=== PATIENT | female | born 1935 | race Caucasian/White ===

== ENCOUNTER 2023-07-03 11:04 | Inpatient (IN) | payer MEDICARE ==
[2023-07-03] MEDS ORDERED: traMADol HCl 50 MG TAB PO PRN (15:11)
[2023-07-03] MEDS ORDERED: CYCLOBENZAPRINE HCL 7.5 MG PO PRN (15:11)
[2023-07-03] MEDS ORDERED: Benzocaine/Menthol 1 LOZ LOZ PO PRN (15:20)
[2023-07-03] MEDS ORDERED: Artificial Tear Sol 15 ML BOT EA EYE PRN (15:20)
[2023-07-03] MEDS ORDERED: Acetaminophen 325 MG TAB PO PRN (15:20)
[2023-07-03] MEDS ORDERED: Bisacodyl 10 MG SUPP PR PRN (15:20)
[2023-07-03] MEDS ORDERED: Benzonatate 100 MG CAP PO PRN (15:20)
[2023-07-03] MEDS ORDERED: Sodium Chloride 0.65% Nasal 44 ML BOT EA NARE PRN (15:20)
[2023-07-03] MEDS ORDERED: Guaifenesin DM 100-10/5 ML UDCUP PO PRN (15:20)
[2023-07-03] MEDS ORDERED: cloNIDine 0.1 MG TAB PO PRN (15:20)
[2023-07-03] MEDS ORDERED: Calcium Carbonate 500 MG ChewTAB PO PRN ×2 (15:20)
[2023-07-03] MEDS ORDERED: Acetaminophen 650 MG Suppository PR PRN (15:20)
[2023-07-03] MEDS ORDERED: Cyclobenzaprine 10 MG TAB PO PRN (15:26)
[2023-07-03] MEDS: Ferrous Sulfate 325 MG TAB PO SCH (17:44)
[2023-07-03] MEDS: Potassium Chloride 10 MEQ TAB PO SCH (17:44)
[2023-07-03] MEDS: Acetaminophen 500 MG TAB PO SCH (21:52)
[2023-07-03] MEDS: Gabapentin 300 MG CAP PO SCH (21:52)
[2023-07-03] MEDS: Saccharomyces boulardii 250 MG CAP PO SCH (21:52)
[2023-07-03] MEDS: Amitriptyline HCl 25 MG TAB PO SCH (21:53)
[2023-07-04 05:17] LABS: %Lymphocytes 25.1 % (21.0-51.0); %Monocytes 8.6 % (0.0-10.0); %Neutrophils 57.6 % (42.0-75.0); Hematocrit 41.2 % (36.0-47.0); Hemoglobin 13.3 g/dL (12.0-16.0); Mean Corpuscular HGB CONC 32.3 g/dL (32.0-36.0); Mean Corpuscular Hemoglobin 29.4 pg (27.0-31.0); Mean Corpuscular Volume 91.2 fl (78.0-98.0); Mean Platelet Volume 7.2 fL (7.4-10.4); Platelet Count 269 10x3/uL (130-400); RBC Distribution Width 12.9 % (11.5-14.5); Red Blood Cell (RBC) Count 4.52 mill/uL (4.20-5.40); White Blood Cell (WBC) Count 7.3 10x3/uL (4.8-10.8)
[2023-07-04 05:18] LABS: #Basophils 0.1 thou/uL (0.0-0.2); #Eosinphils 0.6 thou/uL (0.0-0.7); #Lymphocytes 1.8 thou/uL (1.20-3.40); #Monocytes 0.6 thou/uL (0.11-0.59); #Neutrophils 4.2 thou/uL (1.40-6.50); %Basophils 1.1 % (0.0-1.0); %Eosinophils 7.6 % (0.0-10.0)
[2023-07-04 05:35] LABS: Sodium 139 mmol/L (136-145)
[2023-07-04 05:36] LABS: ALT (SGPT) 14 U/L (8-55); AST (SGOT) 20 U/L (5-34); Alkaline Phosphatase 69 U/L (40-110); BUN (Urea Nitrogen) 21 mg/dL (9.8-20.1); Bilirubin, Total 0.7 mg/dL (0.2-1.2); Calc. Creatinine Clearance 50 mL/min (70-130); Calcium 9.4 mg/dL (7.6-10.4); Carbon Dioxide 24 mmol/L (23-31); Chloride 107 mmol/L (98-107); Estimated GFR 84; Globulin 3.6 g/dL (2.4-3.5); Glucose 80 mg/dL (83-110); Protein, Total 6.6 g/dL (5.8-8.1)
[2023-07-04] MEDS: Thyroid 30 MG TAB PO SCH (06:10)
[2023-07-04 08:43] LABS: Anion Gap 12 mmol/L (10-20)
[2023-07-04] MEDS: Potassium Chloride 10 MEQ TAB PO SCH ×2 (08:43→16:16)
[2023-07-04] MEDS: Saccharomyces boulardii 250 MG CAP PO SCH ×2 (08:43→20:19)
[2023-07-04] MEDS: Cholecalciferol 1,000 UNITS (25 MCG) TAB PO SCH (08:43)
[2023-07-04] MEDS: Furosemide 20 MG TAB PO SCH (08:43)
[2023-07-04] MEDS: Famotidine 20 MG TAB PO SCH (08:43)
[2023-07-04] MEDS: Acetaminophen 500 MG TAB PO SCH ×2 (08:44→20:19)
[2023-07-04] MEDS: Ferrous Sulfate 325 MG TAB PO SCH ×2 (08:44→16:16)
[2023-07-04] MEDS: Aspirin 81 mg Enteric Coated Tablet PO SCH (08:44)
[2023-07-04] MEDS: Senokot S 8.6-50 MG TAB PO PRN (16:16)
[2023-07-04] MEDS: Gabapentin 300 MG CAP PO SCH (20:18)
[2023-07-04] MEDS: Amitriptyline HCl 25 MG TAB PO SCH (20:19)
[2023-07-05] MEDS: Thyroid 30 MG TAB PO SCH (06:03)
[2023-07-05] MEDS: Cholecalciferol 1,000 UNITS (25 MCG) TAB PO SCH (08:05)
[2023-07-05] MEDS: Furosemide 20 MG TAB PO SCH (08:06)
[2023-07-05] MEDS: Famotidine 20 MG TAB PO SCH (08:06)
[2023-07-05] MEDS: Senokot S 8.6-50 MG TAB PO PRN (08:06)
[2023-07-05] MEDS: Saccharomyces boulardii 250 MG CAP PO SCH ×2 (08:06→20:20)
[2023-07-05] MEDS: Acetaminophen 500 MG TAB PO SCH ×2 (08:06→20:20)
[2023-07-05] MEDS: Potassium Chloride 10 MEQ TAB PO SCH ×2 (08:06→16:45)
[2023-07-05] MEDS: Aspirin 81 mg Enteric Coated Tablet PO SCH (08:06)
[2023-07-05] MEDS: Ferrous Sulfate 325 MG TAB PO SCH ×2 (08:06→16:45)
[2023-07-05] MEDS: Amitriptyline HCl 25 MG TAB PO SCH (20:20)
[2023-07-05] MEDS: Gabapentin 300 MG CAP PO SCH (20:20)
[2023-07-06] MEDS: Thyroid 30 MG TAB PO SCH (05:34)
[2023-07-06 06:07] LABS: #Basophils 0.1 thou/uL (0.0-0.2); #Eosinphils 0.6 thou/uL (0.0-0.7); #Lymphocytes 1.8 thou/uL (1.20-3.40); #Monocytes 0.6 thou/uL (0.11-0.59); #Neutrophils 4.5 thou/uL (1.40-6.50); %Basophils 0.9 % (0.0-1.0); %Eosinophils 7.9 % (0.0-10.0); %Lymphocytes 23.7 % (21.0-51.0); %Monocytes 7.8 % (0.0-10.0); %Neutrophils 59.8 % (42.0-75.0); Hematocrit 43.1 % (36.0-47.0); Hemoglobin 13.4 g/dL (12.0-16.0); Mean Corpuscular HGB CONC 31.1 g/dL (32.0-36.0); Mean Corpuscular Hemoglobin 28.7 pg (27.0-31.0); Mean Corpuscular Volume 92.4 fl (78.0-98.0); Mean Platelet Volume 7.1 fL (7.4-10.4); Platelet Count 282 10x3/uL (130-400); RBC Distribution Width 13.3 % (11.5-14.5); Red Blood Cell (RBC) Count 4.67 mill/uL (4.20-5.40); White Blood Cell (WBC) Count 7.5 10x3/uL (4.8-10.8)
[2023-07-06 06:24] LABS: Anion Gap 12 mmol/L (10-20); BUN (Urea Nitrogen) 19 mg/dL (9.8-20.1); Calc. Creatinine Clearance 48 mL/min (70-130); Calcium 9.4 mg/dL (7.6-10.4); Carbon Dioxide 22 mmol/L (23-31); Chloride 106 mmol/L (98-107); Estimated GFR 84; Glucose 74 mg/dL (83-110); Sodium 136 mmol/L (136-145)
[2023-07-06] MEDS: Acetaminophen 500 MG TAB PO SCH ×2 (09:28→20:16)
[2023-07-06] MEDS: Ferrous Sulfate 325 MG TAB PO SCH ×2 (09:28→17:40)
[2023-07-06] MEDS: Aspirin 81 mg Enteric Coated Tablet PO SCH (09:28)
[2023-07-06] MEDS: Famotidine 20 MG TAB PO SCH (09:29)
[2023-07-06] MEDS: Cholecalciferol 1,000 UNITS (25 MCG) TAB PO SCH (09:29)
[2023-07-06] MEDS: Potassium Chloride 10 MEQ TAB PO SCH ×2 (09:30→17:40)
[2023-07-06] MEDS: Saccharomyces boulardii 250 MG CAP PO SCH ×2 (09:31→20:18)
[2023-07-06] MEDS: Furosemide 20 MG TAB PO SCH (09:33)
[2023-07-06] MEDS: Amitriptyline HCl 25 MG TAB PO SCH (20:17)
[2023-07-06] MEDS: Gabapentin 300 MG CAP PO SCH (20:17)
[2023-07-07] MEDS: Thyroid 30 MG TAB PO SCH (06:00)
[2023-07-07] MEDS: Furosemide 20 MG TAB PO SCH (09:24)
[2023-07-07] MEDS: Aspirin 81 mg Enteric Coated Tablet PO SCH (09:24)
[2023-07-07] MEDS: Ferrous Sulfate 325 MG TAB PO SCH ×2 (09:24→17:35)
[2023-07-07] MEDS: Saccharomyces boulardii 250 MG CAP PO SCH ×2 (09:24→21:19)
[2023-07-07] MEDS: Cholecalciferol 1,000 UNITS (25 MCG) TAB PO SCH (09:24)
[2023-07-07] MEDS: Acetaminophen 500 MG TAB PO SCH ×2 (09:25→21:17)
[2023-07-07] MEDS: Famotidine 20 MG TAB PO SCH (09:26)
[2023-07-07] MEDS: Potassium Chloride 10 MEQ TAB PO SCH ×2 (09:26→17:36)
[2023-07-07] MEDS: Amitriptyline HCl 25 MG TAB PO SCH (21:19)
[2023-07-07] MEDS: Gabapentin 300 MG CAP PO SCH (21:19)
[2023-07-08] MEDS: Thyroid 30 MG TAB PO SCH (05:50)
[2023-07-08] MEDS: Acetaminophen 500 MG TAB PO SCH ×2 (08:00→20:29)
[2023-07-08] MEDS: Saccharomyces boulardii 250 MG CAP PO SCH ×2 (08:00→20:30)
[2023-07-08] MEDS: Furosemide 20 MG TAB PO SCH (08:00)
[2023-07-08] MEDS: Aspirin 81 mg Enteric Coated Tablet PO SCH (08:00)
[2023-07-08] MEDS: Ferrous Sulfate 325 MG TAB PO SCH ×2 (08:00→17:11)
[2023-07-08] MEDS: Famotidine 20 MG TAB PO SCH (08:00)
[2023-07-08] MEDS: Potassium Chloride 10 MEQ TAB PO SCH ×2 (08:00→17:11)
[2023-07-08] MEDS: Cholecalciferol 1,000 UNITS (25 MCG) TAB PO SCH (08:00)
[2023-07-08] MEDS: Gabapentin 300 MG CAP PO SCH (20:27)
[2023-07-08] MEDS: Amitriptyline HCl 25 MG TAB PO SCH (20:27)
[2023-07-09] MEDS: Thyroid 30 MG TAB PO SCH (06:32)
[2023-07-09] MEDS: Aspirin 81 mg Enteric Coated Tablet PO SCH (08:51)
[2023-07-09] MEDS: Potassium Chloride 10 MEQ TAB PO SCH ×2 (08:51→18:15)
[2023-07-09] MEDS: Saccharomyces boulardii 250 MG CAP PO SCH ×2 (08:51→20:15)
[2023-07-09] MEDS: Furosemide 20 MG TAB PO SCH (08:51)
[2023-07-09] MEDS: Lisinopril 5 MG TAB PO SCH (08:53)
[2023-07-09] MEDS: Acetaminophen 500 MG TAB PO SCH ×2 (08:54→20:16)
[2023-07-09] MEDS: Ferrous Sulfate 325 MG TAB PO SCH ×2 (08:54→18:15)
[2023-07-09] MEDS: Famotidine 20 MG TAB PO SCH (08:54)
[2023-07-09] MEDS: Cholecalciferol 1,000 UNITS (25 MCG) TAB PO SCH ×2 (09:04→09:51)
[2023-07-09] MEDS: Senokot S 8.6-50 MG TAB PO PRN (15:42)
[2023-07-09] MEDS: Bisacodyl 5 MG TAB PO PRN (18:15)
[2023-07-09] MEDS: Gabapentin 300 MG CAP PO SCH (20:15)
[2023-07-09] MEDS: Amitriptyline HCl 25 MG TAB PO SCH (20:16)
[2023-07-10] MEDS: Thyroid 30 MG TAB PO SCH (06:25)
[2023-07-10] MEDS: Acetaminophen 500 MG TAB PO SCH ×2 (08:02→21:05)
[2023-07-10] MEDS: Saccharomyces boulardii 250 MG CAP PO SCH ×2 (08:04→20:48)
[2023-07-10] MEDS: Famotidine 20 MG TAB PO SCH (08:04)
[2023-07-10] MEDS: Aspirin 81 mg Enteric Coated Tablet PO SCH (08:04)
[2023-07-10] MEDS: Furosemide 20 MG TAB PO SCH (08:04)
[2023-07-10] MEDS: Cholecalciferol 1,000 UNITS (25 MCG) TAB PO SCH (08:04)
[2023-07-10] MEDS: Potassium Chloride 10 MEQ TAB PO SCH ×2 (08:05→17:41)
[2023-07-10] MEDS: Ferrous Sulfate 325 MG TAB PO SCH ×2 (08:06→17:40)
[2023-07-10] MEDS: Lisinopril 5 MG TAB PO SCH (08:09)
[2023-07-10] MEDS: Gabapentin 300 MG CAP PO SCH (20:48)
[2023-07-10] MEDS: Amitriptyline HCl 25 MG TAB PO SCH (20:48)
[2023-07-11] MEDS: Thyroid 30 MG TAB PO SCH (05:13)
[2023-07-11 06:30] LABS: #Basophils 0.1 thou/uL (0.0-0.2); #Eosinphils 0.6 thou/uL (0.0-0.7); #Lymphocytes 2.2 thou/uL (1.20-3.40); #Monocytes 0.5 thou/uL (0.11-0.59); #Neutrophils 3.1 thou/uL (1.40-6.50); %Basophils 1.5 % (0.0-1.0); %Eosinophils 8.8 % (0.0-10.0); %Lymphocytes 33.9 % (21.0-51.0); %Monocytes 8.2 % (0.0-10.0); %Neutrophils 47.6 % (42.0-75.0); Hematocrit 42.8 % (36.0-47.0); Hemoglobin 13.4 g/dL (12.0-16.0); Mean Corpuscular HGB CONC 31.4 g/dL (32.0-36.0); Mean Corpuscular Hemoglobin 28.9 pg (27.0-31.0); Mean Corpuscular Volume 92.2 fl (78.0-98.0); Mean Platelet Volume 8.2 fL (7.4-10.4); Platelet Count 290 10x3/uL (130-400); RBC Distribution Width 13.5 % (11.5-14.5); Red Blood Cell (RBC) Count 4.64 mill/uL (4.20-5.40); White Blood Cell (WBC) Count 6.5 10x3/uL (4.8-10.8)
[2023-07-11] MEDS: Ferrous Sulfate 325 MG TAB PO SCH ×2 (08:09→16:24)
[2023-07-11] MEDS: Acetaminophen 500 MG TAB PO SCH ×2 (08:09→20:44)
[2023-07-11] MEDS: Potassium Chloride 10 MEQ TAB PO SCH ×2 (08:09→16:24)
[2023-07-11] MEDS: Aspirin 81 mg Enteric Coated Tablet PO SCH (08:11)
[2023-07-11] MEDS: Cholecalciferol 1,000 UNITS (25 MCG) TAB PO SCH (08:13)
[2023-07-11] MEDS: Famotidine 20 MG TAB PO SCH (08:13)
[2023-07-11] MEDS: Furosemide 20 MG TAB PO SCH (08:14)
[2023-07-11] MEDS: Lisinopril 5 MG TAB PO SCH (08:15)
[2023-07-11] MEDS: Saccharomyces boulardii 250 MG CAP PO SCH ×2 (08:15→20:44)
[2023-07-11 16:00] LABS: #Basophils 0.1 thou/uL (0.0-0.2); #Eosinphils 0.6 thou/uL (0.0-0.7); #Lymphocytes 1.9 thou/uL (1.20-3.40); #Monocytes 0.5 thou/uL (0.11-0.59); %Basophils 1.4 % (0.0-1.0); %Eosinophils 7.8 % (0.0-10.0); %Lymphocytes 27.1 % (21.0-51.0); %Monocytes 6.8 % (0.0-10.0); %Neutrophils 56.9 % (42.0-75.0); Hematocrit 53.2 % (36.0-47.0); Hemoglobin 16.2 g/dL (12.0-16.0); Mean Corpuscular HGB CONC 30.5 g/dL (32.0-36.0); Mean Corpuscular Hemoglobin 28.8 pg (27.0-31.0); Mean Corpuscular Volume 94.5 fl (78.0-98.0); Mean Platelet Volume 7.6 fL (7.4-10.4); Platelet Count 310 10x3/uL (130-400); Red Blood Cell (RBC) Count 5.63 mill/uL (4.20-5.40)
[2023-07-11 16:01] LABS: ALT (SGPT) 26 U/L (8-55); AST (SGOT) 43 U/L (5-34); Alkaline Phosphatase 97 U/L (40-110); Anion Gap 19 mmol/L (10-20); BUN (Urea Nitrogen) 22 mg/dL (9.8-20.1); Bilirubin, Total 0.5 mg/dL (0.2-1.2); Calc. Creatinine Clearance 38 mL/min (70-130); Calcium 10.4 mg/dL (7.8-10.44); Carbon Dioxide 22 mmol/L (23-31); Chloride 103 mmol/L (98-107); Estimated GFR 63; Glucose 94 mg/dL (83-110); Potassium 4.5 mmol/L (3.5-5.1); Sodium 139 mmol/L (136-145)
[2023-07-11 16:06] LABS: Troponin I Less than 0.010 ng/mL (< 0.028)
[2023-07-11] MEDS ORDERED: Sodium Chloride 0.9% 1,000 ML IV SCH (16:15)
[2023-07-11] MEDS: Gabapentin 300 MG CAP PO SCH (20:45)
[2023-07-11] MEDS: Amitriptyline HCl 25 MG TAB PO SCH (20:45)
[2023-07-12] MEDS: Thyroid 30 MG TAB PO SCH (05:34)
[2023-07-12 06:10] LABS: #Basophils 0.1 thou/uL (0.0-0.2); #Eosinphils 0.5 thou/uL (0.0-0.7); #Lymphocytes 2.1 thou/uL (1.20-3.40); #Monocytes 0.5 thou/uL (0.11-0.59); #Neutrophils 3.1 thou/uL (1.40-6.50); %Basophils 1.4 % (0.0-1.0); %Eosinophils 8.4 % (0.0-10.0); %Lymphocytes 32.4 % (21.0-51.0); %Monocytes 8.1 % (0.0-10.0); %Neutrophils 49.7 % (42.0-75.0); Hemoglobin 12.8 g/dL (12.0-16.0); Mean Corpuscular HGB CONC 30.6 g/dL (32.0-36.0); Mean Corpuscular Hemoglobin 28.6 pg (27.0-31.0); Mean Corpuscular Volume 93.5 fl (78.0-98.0); Mean Platelet Volume 7.4 fL (7.4-10.4); Platelet Count 248 10x3/uL (130-400); RBC Distribution Width 13.8 % (11.5-14.5); Red Blood Cell (RBC) Count 4.49 mill/uL (4.20-5.40); White Blood Cell (WBC) Count 6.3 10x3/uL (4.8-10.8)
[2023-07-12 06:15] LABS: Anion Gap 13 mmol/L (10-20); Globulin 3.2 g/dL (2.4-3.5)
[2023-07-12 06:22] LABS: ALT (SGPT) 17 U/L (8-55); AST (SGOT) 24 U/L (5-34); Albumin 2.9 g/dL (3.4-4.8); Alkaline Phosphatase 69 U/L (40-110); BUN (Urea Nitrogen) 20 mg/dL (9.8-20.1); Bilirubin, Total 0.5 mg/dL (0.2-1.2); Calc. Creatinine Clearance 44 mL/min (70-130); Calcium 9.2 mg/dL (7.8-10.44); Carbon Dioxide 22 mmol/L (23-31); Chloride 110 mmol/L (98-107); Estimated GFR 75; Glucose 79 mg/dL (83-110); Potassium 3.9 mmol/L (3.5-5.1); Protein, Total 6.1 g/dL (5.8-8.1); Sodium 141 mmol/L (136-145)
[2023-07-12] MEDS: Furosemide 20 MG TAB PO SCH (08:29)
[2023-07-12] MEDS: Lisinopril 5 MG TAB PO SCH (08:30)
[2023-07-12] MEDS: Aspirin 81 mg Enteric Coated Tablet PO SCH (08:31)
[2023-07-12] MEDS: Acetaminophen 500 MG TAB PO SCH ×2 (08:31→20:38)
[2023-07-12] MEDS: Saccharomyces boulardii 250 MG CAP PO SCH ×2 (08:31→20:36)
[2023-07-12] MEDS: Famotidine 20 MG TAB PO SCH (08:33)
[2023-07-12] MEDS: Cholecalciferol 1,000 UNITS (25 MCG) TAB PO SCH (08:34)
[2023-07-12] MEDS: Ferrous Sulfate 325 MG TAB PO SCH ×2 (08:34→17:25)
[2023-07-12] MEDS: Potassium Chloride 10 MEQ TAB PO SCH ×2 (08:34→17:25)
[2023-07-12] MEDS: Nystatin Powder 15 GM BOT TOP SCH ×2 (14:33→20:36)
[2023-07-12] MEDS: Amitriptyline HCl 25 MG TAB PO SCH (20:36)
[2023-07-12] MEDS: Gabapentin 300 MG CAP PO SCH (20:36)
[2023-07-13] MEDS: Thyroid 30 MG TAB PO SCH (05:28)
[2023-07-13] MEDS: Saccharomyces boulardii 250 MG CAP PO SCH ×2 (08:51→20:42)
[2023-07-13] MEDS: Cholecalciferol 1,000 UNITS (25 MCG) TAB PO SCH (08:51)
[2023-07-13] MEDS: Acetaminophen 500 MG TAB PO SCH ×2 (08:51→20:42)
[2023-07-13] MEDS: Furosemide 20 MG TAB PO SCH (08:52)
[2023-07-13] MEDS: Potassium Chloride 10 MEQ TAB PO SCH ×2 (08:52→17:27)
[2023-07-13] MEDS: Famotidine 20 MG TAB PO SCH (08:52)
[2023-07-13] MEDS: Lisinopril 5 MG TAB PO SCH (08:52)
[2023-07-13] MEDS: Ferrous Sulfate 325 MG TAB PO SCH ×2 (08:52→17:27)
[2023-07-13] MEDS: Aspirin 81 mg Enteric Coated Tablet PO SCH (08:53)
[2023-07-13] MEDS: Nystatin Powder 15 GM BOT TOP SCH ×3 (08:53→20:44)
[2023-07-13] MEDS: Senokot S 8.6-50 MG TAB PO PRN (09:13)
[2023-07-13 10:18] LABS: #Basophils 0.1 thou/uL (0.0-0.2); #Eosinphils 0.6 thou/uL (0.0-0.7); #Lymphocytes 1.8 thou/uL (1.20-3.40); #Monocytes 0.9 thou/uL (0.11-0.59); #Neutrophils 8.1 thou/uL (1.40-6.50); %Basophils 0.9 % (0.0-1.0); %Eosinophils 5.2 % (0.0-10.0); %Lymphocytes 15.7 % (21.0-51.0); %Monocytes 7.4 % (0.0-10.0); %Neutrophils 70.8 % (42.0-75.0); Hematocrit 44.9 % (36.0-47.0); Mean Corpuscular Hemoglobin 28.9 pg (27.0-31.0); Mean Corpuscular Volume 93.1 fl (78.0-98.0); Mean Platelet Volume 7.2 fL (7.4-10.4); Platelet Count 292 10x3/uL (130-400); RBC Distribution Width 14.1 % (11.5-14.5); Red Blood Cell (RBC) Count 4.83 mill/uL (4.20-5.40); White Blood Cell (WBC) Count 11.4 10x3/uL (4.8-10.8)
[2023-07-13 10:30] LABS: Anion Gap 11 mmol/L (10-20); BUN (Urea Nitrogen) 18 mg/dL (9.8-20.1); Calc. Creatinine Clearance 46 mL/min (70-130); Carbon Dioxide 26 mmol/L (23-31); Chloride 106 mmol/L (98-107); Estimated GFR 77; Glucose 72 mg/dL (83-110); Sodium 139 mmol/L (136-145)
[2023-07-13] MEDS: Bisacodyl 5 MG TAB PO PRN (17:27)
[2023-07-13] MEDS: Amitriptyline HCl 25 MG TAB PO SCH (20:41)
[2023-07-13] MEDS: Gabapentin 300 MG CAP PO SCH (20:42)
[2023-07-14] MEDS: Thyroid 30 MG TAB PO SCH (05:43)
[2023-07-14] MEDS: Lisinopril 5 MG TAB PO SCH (08:09)
[2023-07-14] MEDS: Famotidine 20 MG TAB PO SCH (08:09)
[2023-07-14] MEDS: Cholecalciferol 1,000 UNITS (25 MCG) TAB PO SCH (08:09)
[2023-07-14] MEDS: Acetaminophen 500 MG TAB PO SCH ×2 (08:10→21:25)
[2023-07-14] MEDS: Saccharomyces boulardii 250 MG CAP PO SCH ×2 (08:10→21:25)
[2023-07-14] MEDS: Potassium Chloride 10 MEQ TAB PO SCH ×2 (08:10→17:44)
[2023-07-14] MEDS: Furosemide 20 MG TAB PO SCH (08:10)
[2023-07-14] MEDS: Ferrous Sulfate 325 MG TAB PO SCH ×2 (08:10→17:43)
[2023-07-14] MEDS: Aspirin 81 mg Enteric Coated Tablet PO SCH (08:10)
[2023-07-14] MEDS: Nystatin Powder 15 GM BOT TOP SCH ×3 (08:10→21:26)
[2023-07-14] MEDS: Gabapentin 300 MG CAP PO SCH (21:24)
[2023-07-14] MEDS: Amitriptyline HCl 25 MG TAB PO SCH (21:26)
[2023-07-15] MEDS: Thyroid 30 MG TAB PO SCH (05:30)
[2023-07-15 05:31] VITALS: BMI 20.6
[2023-07-15 06:09] LABS: %Basophils 1.3 % (0.0-1.0); %Eosinophils 7.9 % (0.0-10.0); %Lymphocytes 31.9 % (21.0-51.0); %Monocytes 8.8 % (0.0-10.0); %Neutrophils 50.2 % (42.0-75.0); Hematocrit 40.9 % (36.0-47.0); Hemoglobin 12.6 g/dL (12.0-16.0); Mean Corpuscular HGB CONC 30.7 g/dL (32.0-36.0); Mean Corpuscular Hemoglobin 28.9 pg (27.0-31.0); Mean Corpuscular Volume 94.1 fl (78.0-98.0); Platelet Count 235 10x3/uL (130-400); RBC Distribution Width 14.1 % (11.5-14.5); Red Blood Cell (RBC) Count 4.35 mill/uL (4.20-5.40); White Blood Cell (WBC) Count 7.1 10x3/uL (4.8-10.8)
[2023-07-15 06:10] LABS: #Basophils 0.1 thou/uL (0.0-0.2); #Eosinphils 0.6 thou/uL (0.0-0.7); #Lymphocytes 2.3 thou/uL (1.20-3.40); #Monocytes 0.6 thou/uL (0.11-0.59); #Neutrophils 3.6 thou/uL (1.40-6.50)
[2023-07-15] MEDS: Saccharomyces boulardii 250 MG CAP PO SCH ×2 (10:22→20:46)
[2023-07-15] MEDS: Furosemide 20 MG TAB PO SCH (10:23)
[2023-07-15] MEDS: Cholecalciferol 1,000 UNITS (25 MCG) TAB PO SCH (10:23)
[2023-07-15] MEDS: Lisinopril 5 MG TAB PO SCH (10:24)
[2023-07-15] MEDS: Famotidine 20 MG TAB PO SCH (10:24)
[2023-07-15] MEDS: Acetaminophen 500 MG TAB PO SCH ×2 (10:25→20:46)
[2023-07-15] MEDS: Aspirin 81 mg Enteric Coated Tablet PO SCH (10:25)
[2023-07-15] MEDS: Nystatin Powder 15 GM BOT TOP SCH ×3 (10:26→20:45)
[2023-07-15] MEDS: Ferrous Sulfate 325 MG TAB PO SCH ×4 (10:57→17:53)
[2023-07-15] MEDS: Potassium Chloride 10 MEQ TAB PO SCH ×4 (10:58→17:53)
[2023-07-15] MEDS: Gabapentin 300 MG CAP PO SCH (20:46)
[2023-07-15] MEDS: Amitriptyline HCl 25 MG TAB PO SCH (20:47)
[2023-07-16] MEDS: Thyroid 30 MG TAB PO SCH (06:15)
[2023-07-16 07:36] VITALS: TEMP 98.1
[2023-07-16 07:37] VITALS: BP 119/57
[2023-07-16] MEDS: Furosemide 20 MG TAB PO SCH (09:05)
[2023-07-16] MEDS: Saccharomyces boulardii 250 MG CAP PO SCH (09:05)
[2023-07-16] MEDS: Famotidine 20 MG TAB PO SCH (09:05)
[2023-07-16] MEDS: Cholecalciferol 1,000 UNITS (25 MCG) TAB PO SCH (09:05)
[2023-07-16] MEDS: Acetaminophen 500 MG TAB PO SCH (09:06)
[2023-07-16] MEDS: Potassium Chloride 10 MEQ TAB PO SCH (09:06)
[2023-07-16] MEDS: Ferrous Sulfate 325 MG TAB PO SCH (09:06)
[2023-07-16] MEDS: Lisinopril 5 MG TAB PO SCH (09:07)
[2023-07-16] MEDS: Aspirin 81 mg Enteric Coated Tablet PO SCH (09:07)
[2023-07-16] MEDS: Nystatin Powder 15 GM BOT TOP SCH (09:08)
== END 2023-07-16 13:25 | disposition home health service (06) | DRG 948 ==
LOC: NAV ACUTE 13:04
PROVIDERS: ADMIT Family Medicine; ATTEND Family Medicine
DX: R53.81 Other malaise (principal); I48.20 Chronic atrial fibrillation, unspecified; R53.1 Weakness; Z66 Do not resuscitate; F03.90 Unspecified dementia, unspecified severity, without behavioral disturbance, psychotic disturbance, mood disturbance, and anxiety; E89.0 Postprocedural hypothyroidism; I10 Essential (primary) hypertension; R23.8 Other skin changes; Z96.653 Presence of artificial knee joint, bilateral; Z91.040 Latex allergy status; Z88.5 Allergy status to narcotic agent; Z88.7 Allergy status to serum and vaccine; Z79.899 Other long term (current) drug therapy; Z79.82 Long term (current) use of aspirin; Z90.710 Acquired absence of both cervix and uterus; Z89.429 Acquired absence of other toe(s), unspecified side; Z87.440 Personal history of urinary (tract) infections; E86.0 Dehydration
CPT/HCPCS: 36415; 36416; 80048; 80053; 84484; 85025; J7050